=== PATIENT | male | born 1945 | race Caucasian/White ===

== ENCOUNTER 2024-10-24 12:14 | Outpatient (CLI) | payer MEDICARE, BC | END 2024-10-24 12:15 | disposition home or self-care (01) | LOC: SCSMRI 12:14 | PROVIDERS: ATTEND Family Medicine | DX: Q45.3 Other congenital malformations of pancreas and pancreatic duct (principal); K86.2 Cyst of pancreas; N28.1 Cyst of kidney, acquired; K76.89 Other specified diseases of liver | CPT/HCPCS: 74183; 76376 ==